=== PATIENT | female | born 1970 | race Two or more races ===

== ENCOUNTER 2016-05-18 18:51 | Emergency (ER) | payer SELFPAY ==
[~2016-05-18] VITALS: Ht 162.6 cm; Wt 63.5 kg
[2016-05-18 22:12] VITALS: BP 124/70
== END 2016-05-18 22:15 | disposition home or self-care (01) ==
LOC: ER 19:03 → EDBD 19:03 → ER 22:15
DX: J06.9 Acute upper respiratory infection, unspecified (principal); Z88.5 Allergy status to narcotic agent; Z88.1 Allergy status to other antibiotic agents